=== PATIENT | male | born 2005 | race Caucasian/White ===

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

== ENCOUNTER 2023-11-10 06:42 | Emergency (ER) | payer OTHER ==
[2023-11-10 06:52] VITALS: BP 136/77; PULSE 65; RESP 20; TEMP 98.3; BMI 37.1
[2023-11-10] MEDS ORDERED: ACETAMINOPHEN 500 MG TABLET (FP) PO ONE (07:49)
[2023-11-10] MEDS ORDERED: ACETAMINOPHEN 500 MG TABLET (FP) ONE (07:50)
== END 2023-11-10 08:16 | disposition home or self-care (01) ==
LOC: JER 06:42
PROC: 2W3KX1Z Immobilization of Left Finger using Splint (ICD-10-PCS; principal; 2023-11-10)
DX: S60.941A Unspecified superficial injury of left index finger, initial encounter (principal); M79.645 Pain in left finger(s); M79.89 Other specified soft tissue disorders; W50.1XXA Accidental kick by another person, initial encounter; Y93.71 Activity, boxing; Y92.39 Other specified sports and athletic area as the place of occurrence of the external cause
CPT/HCPCS: 73130-TC-LT-FY; 99283-25